=== PATIENT | male | born 1935 | race Caucasian/White ===

== ENCOUNTER 2016-09-22 13:41 | Emergency (ER) | payer MEDICARE, BC, OTHER ==
[~2016-09-22] VITALS: Ht 170.2 cm; Wt 94.5 kg
[2016-09-22 13:44] VITALS: BP 136/81; PULSE 76; RESP 16; TEMP 97.7; O2SAT 100
[2016-09-22] MEDS ORDERED: SODIUM CHLOR 0.9% 1000 ML INJ 1,000 ML IV SCH (14:00)
[2016-09-22] MEDS ORDERED: ONDANSETRON HCL 4 MG/2 ML VIAL IV PUSH ONE (14:00)
[2016-09-22] MEDS ORDERED: MECLIZINE HCL 25 MG TAB PO ONE (14:00)
[2016-09-22] MEDS ORDERED: ASPI81CH CHEW (14:20)
[2016-09-22] MEDS ORDERED: ASCO100037 PO (14:20)
[2016-09-22] MEDS ORDERED: CARV12.5 PO (14:20)
[2016-09-22] MEDS ORDERED: NIZA300C PO (14:20)
[2016-09-22] MEDS ORDERED: CALC1TAB12 PO (14:20)
[2016-09-22] MEDS ORDERED: LISI10TA3 PO (14:20)
[2016-09-22] MEDS ORDERED: VYTO10TA9 PO (14:20)
[2016-09-22] MEDS ORDERED: CLOP75TA PO (14:20)
[2016-09-22] MEDS ORDERED: [UNRECOGNIZED DRUG - CODE] PO (14:20)
[2016-09-22] MEDS ORDERED: CLAR10CA3 PO (14:20)
[2016-09-22] MEDS ORDERED: NITR0.4S SL (14:20)
[2016-09-22] MEDS ORDERED: PAXI25TA5 PO (14:20)
--- NOTE | 2016-09-22 14:24 | PD ---
HPI Chief Complaint: vertigo Time Seen by Provider: 13:49 Travel History International Travel<30 days: No Contact w/Intl Traveler<30days: No Traveled to known affect area: No History of Present Illness HPI This 80-year-old male is complaining of severe dizziness and vertigo. He says he was well until early Saturday morning. He had to go to the bathroom in the middle of the night and when he went he noted that the room was spinning. He felt very lightheaded. He was able to get back to sleep and then woke up yesterday he had intermittent bouts of vertigo. He also felt lightheaded at times. There has not been any tinnitus. He is not sure if it is aggravated by movement. He has not had trouble like this before. He has a mild headache. He has a history of prostate cancer that was treated with radiation and hormones. She does have a history of coronary artery disease. He has had multiple stents and has an AICD which was placed last February. He takes aspirin and Plavix PFSH Past Medical History Cardiac Catheterization: Yes Social History Tobacco Use: No Allergies-Medications (Allergen,Severity, Reaction): Coded Allergies: No Known Allergies (Unverified , 09/22/16) Reported Meds & Prescriptions Reported Meds & Active Scripts Active Reported Vytorin (Ezetimibe-Simvastatin) 10-40 Mg Tab 1 Tab PO HS Vitamin C (Ascorbic Acid) 1,000 Mg Tab.chew 2 Tab PO DAILY Paxil CR (Paroxetine HCl) 25 Mg Tab 25 Mg PO DAILY Nizatidine 300 Mg Cap 300 Mg PO HS Nitrostat SL (Nitroglycerin) 0.4 Mg Subl 0.4 Mg SL DIRECTED PRN 1 tablet under the tongue as needed for chest pain. Repeat every 5 minutes for a total of 3 DOSES or call 911 if NO relief. Lisinopril 10 Mg Tab 10 Mg PO DAILY Glucosamine-Chondroitin Tablet (Glucosam Sul Na/Chondr Skinner A Na) 1 Each Tablet 1 Tab PO DAILY Coreg (Carvedilol) 12.5 Mg Tab 12.5 Mg PO BID Clopidogrel (Clopidogrel Bisulfate) 75 Mg Tab 75 Mg PO DAILY Claritin (Loratadine) 10 Mg Cap 10 Mg PO HS Calcium 500 +D (Calcium Carbonate-Cholecalciferol) 500-400 Mg-Unit Tab 1 Tab PO BID Aspirin 81 Mg Chew 81 Mg CHEW DAILY Review of Systems General / Constitutional: No: Fever, Chills Eyes: No: Diploplia HENT: Positive: Vertigo, Lightheadedness, No: Sore Throat Cardiovascular: No: Chest Pain or Discomfort, Palpitations Respiratory: No: Cough, Shortness of Breath Gastrointestinal: Positive: Nausea, Vomiting Genitourinary: No: Urgency, Frequency Musculoskeletal: No: Myalgias, Arthralgias Skin: No Rash, No Itching Neurologic: Positive: Weakness, Dizziness, Headache, No: Syncope, Seizures Psychiatric: No: Anxiety Endocrine: No: Heat Intolerance, Cold Intolerance Hematologic/Lymphatic: No: Easy Bruising Physical Exam Narrative GENERAL: Well-developed male. He is actively vomiting on arrival SKIN: Focused skin assessment warm/dry. HEAD: Atraumatic. Normocephalic. There is left beating nystagmus on left lateral gaze EYES: Pupils equal and round. No scleral icterus. No injection or drainage. ENT: No nasal bleeding or discharge. Mucous membranes pink and moist. NECK: Trachea midline. No JVD. CARDIOVASCULAR: Regular rate and rhythm. No murmur appreciated. RESPIRATORY: No accessory muscle use. Clear to auscultation. Breath sounds equal bilaterally. GASTROINTESTINAL: Abdomen soft, non-tender, nondistended. Hepatic and splenic margins not palpable. MUSCULOSKELETAL: No obvious deformities. No clubbing. No cyanosis. No edema. NEUROLOGICAL: Awake and alert. No obvious cranial nerve deficits. Motor grossly within normal limits. Normal speech. Pool Player are equal. There is no drift of the arms. Leg strength is symmetric. Sensation appears intact PSYCHIATRIC: Appropriate mood and affect; insight and judgment normal. Data Data Last Documented VS Vital Signs Date Time Temp Pulse Resp B/P Pulse Ox O2 Delivery O2 Flow Rate FiO2 09/22/16 15:00 70 16 136/81 95 09/22/16 13:44 97.7 09/22/16 13:44 Room Air Orders Complete Blood Count With Diff (09/22/16 13:52) Basic Metabolic Panel (Bmp) (09/22/16 13:52) Sodium Chlor 0.9% 1000 Ml Inj (Ns 1000 M (09/22/16 14:00) Ondansetron Inj (Zofran Inj) (09/22/16 14:00) Meclizine (Antivert) (09/22/16 14:00) Ct Brain W/O Iv Contrast(Rout) (09/22/16 14:09) Electrocardiogram (09/22/16 14:09) Labs Laboratory Tests Test 09/22/16 13:50 White Blood Count 8.1 TH/MM3 Red Blood Count 4.59 MIL/MM3 Hemoglobin 14.7 GM/DL Hematocrit 43.2 % Mean Corpuscular Volume 94.1 FL Mean Corpuscular Hemoglobin 32.0 PG Mean Corpuscular Hemoglobin 34.0 % Concent Red Cell Distribution Width 13.0 % Platelet Count 248 TH/MM3 Mean Platelet Volume 8.5 FL Neutrophils (%) (Auto) 58.7 % Lymphocytes (%) (Auto) 28.9 % Monocytes (%) (Auto) 9.4 % Eosinophils (%) (Auto) 2.1 % Basophils (%) (Auto) 0.9 % Neutrophils # (Auto) 4.7 TH/MM3 Lymphocytes # (Auto) 2.3 TH/MM3 Monocytes # (Auto) 0.8 TH/MM3 Eosinophils # (Auto) 0.2 TH/MM3 Basophils # (Auto) 0.1 TH/MM3 CBC Comment DIFF FINAL Differential Comment Sodium Level 141 MEQ/L Potassium Level 4.4 MEQ/L Chloride Level 105 MEQ/L Carbon Dioxide Level 29.0 MEQ/L Anion Gap 7 MEQ/L Blood Urea Nitrogen 17 MG/DL Creatinine 1.30 MG/DL Estimat Glomerular Filtration 53 ML/MIN Rate Random Glucose 100 MG/DL Calcium Level 9.8 MG/DL [facility] Medical Decision Making Medical Screen Exam Complete: Yes Emergency Medical Condition: Yes Medical Record Reviewed: Yes Differential Diagnosis Differential includes peripheral vertigo, CVA, Narrative Course Consideration was given to MRI however the patient has a defibrillator which precludes MRI. CT scan has been done and is read as negative. Patient has been given Zofran and meclizine and says his symptoms have resolved. He'll be released with prescription for Zofran and meclizine. Diagnosis Primary Impression: Vertigo Scripts Ondansetron Odt (Zofran Odt)4 Mg Tab4 Mg SL Q8HR PRN (Nausea/Vomiting) #10 TAB Ref 0 Prov:Isiah Ha MD 09/22/16 Meclizine 25 Mg Tab25 Mg PO TID PRN (VERTIGO) #30 TAB Ref 0 Prov:Isiah Ha MD 09/22/16 Disposition: 01 DISCHARGE HOME Condition: Stable Isiah Ha MD Sep 22, 2016 14:24
[2016-09-22 14:26] LABS: AUTOMATED NEUTROPHIL # 4.7 TH/MM3 (1.8-7.7); BASOPHIL # 0.1 TH/MM3 (0-0.2); BASOPHIL % 0.9 % (0.0-2.0); EOSINOPHIL # 0.2 TH/MM3 (0-0.4); EOSINOPHIL % 2.1 % (0.0-4.0); HEMATOCRIT 43.2 % (39.0-51.0); HEMO FLAGS DIFF FINAL; LYMPH % 28.9 % (9.0-44.0); LYMPHOCYTE # 2.3 TH/MM3 (1.0-4.8); MEAN CELL VOLUME 94.1 FL (80.0-100.0); MONO % 9.4 % (0.0-8.0); NEUT % 58.7 % (16.0-70.0); PLATELET COUNT 248 TH/MM3 (150-450); RED BLOOD COUNT 4.59 MIL/MM3 (4.50-5.90); WHITE BLOOD COUNT 8.1 TH/MM3 (4.0-11.0)
[2016-09-22 14:34] LABS: POTASSIUM 4.4 MEQ/L (3.5-5.1)
[2016-09-22 15:00] VITALS: BP 136/81; PULSE 70; RESP 16; O2SAT 95
--- NOTE | 2016-09-22 15:13 | RADRPT ---
EXAM DATE/TIME: 09/22/2016 14:38 [place] COMPARISON: No previous studies available for comparison. INDICATIONS : Dizziness, nausea, sweats. RADIATION DOSE: 66.21 CTDIvol (mGy) MEDICAL HISTORY : Carcinoma, prostate. Rad therapy, Hormone therapy SURGICAL HISTORY : Fusion, lumbar. ENCOUNTER: Initial ACUITY: 2 days PAIN SCALE: 0/10 LOCATION: cranial TECHNIQUE: Multiple contiguous axial images were obtained of the head. Using automated exposure control and adj ustment of the mA and/or kV according to patient size, radiation dose was kept as low as reasonably a chievable to obtain optimal diagnostic quality images. DICOM format image data is available electro nically for review and comparison. FINDINGS: There is no evidence for intracranial hemorrhage, mass effect, mass lesions, edema, or extra-axial fl uid collections. The visualized bony structures appear intact. The ventricles are normal size for t he patient's age. There are no signs of acute infarction for technique. CONCLUSION: Unremarkable study. Rosario Candelario MD on September 22, 2016 at 15:11 Board Certified Radiologist. This report was verified electronically.
[2016-09-22] MEDS ORDERED: ZOFR4TAB3 SL (15:28)
[2016-09-22] MEDS ORDERED: MECL-62 PO (15:28)
--- NOTE | 2016-09-23 12:43 | EKG ---
Date Performed: 09/22/2016 Time Performed: 14:26:23 PTAGE: 80 years EKG: ELECTRONIC ATRIAL PACEMAKER ELECTRONIC VENTRICULAR PACEMAKER ABNORMAL RHYTHM ECG NO PREVIOUS TRACING DOCTOR: Pilo Lantigua Interpretating Date/Time 09/23/2016 12:35:22
== END 2016-09-22 15:45 | disposition home or self-care (01) ==
LOC: PHED 13:41
DX: R42 Dizziness and giddiness (principal)
CPT/HCPCS: 70450; 80048; 85025; 93005; 96361; 96374; 99285; J2405; J7030